=== PATIENT | male | born 1980 | race Two or more races ===

== ENCOUNTER 2017-05-12 20:12 | Emergency (ER) | payer SELFPAY ==
[~2017-05-12] VITALS: Ht 188 cm; Wt 81.8 kg
[2017-05-12 20:18] VITALS: BP 143/98
== END 2017-05-12 21:35 | disposition left against medical advice (07) ==
LOC: EMS 20:13
DX: Z53.21 Procedure and treatment not carried out due to patient leaving prior to being seen by health care provider (principal)